=== PATIENT | male | born 1990 | race Caucasian/White ===

== ENCOUNTER 2016-11-09 13:13 | Inpatient (IN) | payer MEDICAID ==
[~2016-11-09] VITALS: Ht 170.2 cm; Wt 55.3 kg
[~2016-11-09 13:13] MED LIST: RIVA10TA PO
[2016-11-09] MEDS ORDERED: IV NORMAL SALINE 1000 ML BAG IV ONE ×2 (13:45→15:45)
[2016-11-09] MEDS ORDERED: ENOXAPARIN SODIUM 60 MG/0.6 ML DISP.SYRIN SQ ONE ×2 (13:45→14:10)
[2016-11-09] MEDS ORDERED: LORAZEPAM 2 MG/1 ML VIAL IV ONE (13:45)
[2016-11-09] MEDS ORDERED: IOHEXOL 350 100 ML INFUS..BTL ONE (13:57)
[2016-11-09] MEDS ORDERED: IV NORMAL SALINE 250 ML IV ONE (13:57)
[2016-11-09 14:01] LABS: BASOPHILS % (AUTO) 0.9 % (0.0-2.0); EOSINOPHILS # (AUTO) 0.1 K/uL (0.0-0.7); HEMATOCRIT 46.7 % (40-50); HEMOGLOBIN 15.6 G/DL (14.0-18.0); LYMPHOCYTES # (AUTO) 1.6 K/UL (0.8-4.8); MEAN CORPUSCULAR HEMOGLOBIN 28.6 UUG (27.0-31.0); MEAN CORPUSCULAR HGB CONC 33 g/dL (32.0-37.0); MEAN CORPUSCULAR VOLUME 85.8 FL (82.0-92.0); MONOCYTES # (AUTO) 0.3 K/UL (0.1-1.30); MONOCYTES % (AUTO) 5.8 % (0.0-11.0); NEUTROPHILS # (AUTO) 3.3 K/UL (1.8-8.9); NEUTROPHILS % (AUTO) 61.3 % (38.5-71.5); PLATELET COUNT (AUTO) 233 K/UL (150-450); RED BLOOD CELL COUNT(AUTO) 5.44 MIL/UL (4.7-6.1); WHITE BLOOD COUNT (AUTO) 5.3 K/UL (4.0-11.2)
--- NOTE | 2016-11-09 14:03 | NUR ---
PT IS ROOM 2B. DR AMOR EVALUATED THE PT.
[2016-11-09 14:05] LABS: CREATININE 0.9 mg/dL (0.6-1.3); POTASSIUM 3.7 mmol/L (3.5-5.1)
[2016-11-09] MEDS ORDERED: LORAZEPAM 2 MG/1 ML VIAL ONE (14:05)
[2016-11-09 14:18] LABS: BILIRUBIN,DIRECT 0.1 mg/dL (0.0-0.2); BILIRUBIN,TOTAL 0.6 mg/dL (0.2-1.0)
[2016-11-09] MEDS ORDERED: ASPIRIN 325 MG TABLET PO ONE (18:00)
[2016-11-09] MEDS ORDERED: ASPIRIN 325 MG TABLET ONE (18:04)
[2016-11-09 18:32] LABS: *AMPHETAMINE, URINE NEGATIVE (NEGATIVE); *BARBITURATE, URINE NEGATIVE (NEGATIVE); *CANNABINOID, URINE NEGATIVE (NEGATIVE); *COCCAINE, URINE NEGATIVE (NEGATIVE); *OPIATE, URINE NEGATIVE (NEGATIVE); *PHENCYCLIDINE SCREEN,URINE NEGATIVE (NEGATIVE)
--- NOTE | 2016-11-09 19:20 | NUR ---
Received report from MAXIME Levy. Assumed care of pt at this time.
--- NOTE | 2016-11-09 19:56 | NUR ---
Report given to MAXIME Morna. Preparing to transfer pt to the floor.
[2016-11-09 20:40] VITALS: BP 120/86
[2016-11-09] MEDS ORDERED: ACETAMINOPHEN ES 500 MG TABLET PO PRN (22:45)
[2016-11-09] MEDS ORDERED: ONDANSETRON 4 MG/2 ML VIAL IV PRN (22:45)
[2016-11-09] MEDS ORDERED: ZOLPIDEM 5 MG TABLET PO PRN (22:45)
[2016-11-09] MEDS ORDERED: MORPHINE SULFATE 2 MG/1 ML DISP.SYRIN IV PRN (22:45)
[2016-11-09] MEDS: IV NS 1000 ML 1,000 ML IV PRN (23:09)
[2016-11-10] VITALS: BP 116/74
[2016-11-10 04:00] VITALS: BP 112/74
--- NOTE | 2016-11-10 04:00 | NUR ---
PT ADMITTED DUE TO CHEST PAIN ,PT ALERT,ORIENTED,AMBULATORY. PER PT, LAST YEAR HE HAD SAME SYMPTOM THAT THEY FOUND PULMONARY EMBOLI WHICH NOW CLEARED AFTER 6 MONTHS OF XARELTO. PT TROPONIN HAVE BEEN NEGATIVE, CT CHEST IS NEGATIVE OF P.E. SERIES OF TROPONIN TAKEN AND REMAINS WITHIN NORMAL. DENIES ANY EPISODE OF CHEST PAIN WHEN PT ARRIVES TO FLOOR AND OVERNIGHT.SINUS TACHY @ 100'S WITH ACTIVITY AND WHEN ASLEEP HR WENT TO 56'S.ASYMPTOMATIC.VSS,AFEBRILE . CONTINUE TO MONITOR ALL NEEDS ATTENDED.
[2016-11-10 06:44] LABS: BASOPHILS % (AUTO) 0.6 % (0.0-2.0); EOSINOPHILS # (AUTO) 0.1 K/uL (0.0-0.7); EOSINOPHILS % (AUTO) 2.7 % (0.0-7.0); LYMPHOCYTES # (AUTO) 2.2 K/UL (0.8-4.8); LYMPHOCYTES % (AUTO) 40.8 % (20.5-51.5); MEAN CORPUSCULAR HEMOGLOBIN 29.2 UUG (27.0-31.0); MEAN CORPUSCULAR HGB CONC 33 g/dL (32.0-37.0); MEAN CORPUSCULAR VOLUME 87.4 FL (82.0-92.0); MONOCYTES # (AUTO) 0.5 K/UL (0.1-1.30); MONOCYTES % (AUTO) 8.5 % (0.0-11.0); NEUTROPHILS # (AUTO) 2.7 K/UL (1.8-8.9); NEUTROPHILS % (AUTO) 47.4 % (38.5-71.5); PLATELET COUNT (AUTO) 185 K/UL (150-450); WHITE BLOOD COUNT (AUTO) 5.5 K/UL (4.0-11.2)
[2016-11-10 06:59] LABS: CREATININE 0.8 mg/dL (0.6-1.3); POTASSIUM 3.6 mmol/L (3.5-5.1)
[2016-11-10 07:02] LABS: HEMATOCRIT 38.3 % (40-50); HEMOGLOBIN 12.8 G/DL (14.0-18.0); RED BLOOD CELL COUNT(AUTO) 4.39 MIL/UL (4.7-6.1)
[2016-11-10 07:39] LABS: THYROID STIMULATING HORMONE 1.021 mIU/mL (0.358-3.740)
--- NOTE | 2016-11-10 08:00 | NUR ---
Awake, alert, oriented x 4. IVF infusing. Denies pain and shortness of breath. Explain plan of care
[2016-11-10] MEDS ORDERED: ENOXAPARIN SODIUM 40 MG/0.4 ML DISP.SYRIN SQ SCH (09:00)
[2016-11-10] MEDS: IV NS 1000 ML 1,000 ML IV PRN (09:05)
[2016-11-10 12:00] VITALS: BP 108/76
--- NOTE | 2016-11-10 13:21 | NUR ---
With discharge order to home. Saline lock removed. Tele removed. DC instruction given, verbalized understanding. Went home per ambulatory per request, in fair condition, afebrile, not in distress.
== END 2016-11-10 13:15 | disposition home or self-care (01) | DRG 203 ==
LOC: ER 13:13 → TELE 20:02
PROVIDERS: ADMIT Psychiatry & Neurology Psychiatry; ATTEND Psychiatry & Neurology Psychiatry
DX: R07.89 Other chest pain (principal); F41.9 Anxiety disorder, unspecified; K21.9 Gastro-esophageal reflux disease without esophagitis; Z86.711 Personal history of pulmonary embolism; Z82.3 Family history of stroke
CPT/HCPCS: 36415; 70030-TC; 71010; 71275; 80307; 84443; 85025; 85730; 86850; 86900; 86901; 93005; 93307; A4663; J1650; J2060; J7030; J7050; Q9967

== ENCOUNTER 2016-12-14 04:11 | Emergency (ER) | payer MEDICAID ==
[~2016-12-14] VITALS: Ht 170.2 cm; Wt 55.3 kg
[2016-12-14 04:58] LABS: BASOPHILS % (AUTO) 0.7 % (0.0-2.0); EOSINOPHILS # (AUTO) 0.2 K/uL (0.0-0.7); EOSINOPHILS % (AUTO) 3.8 % (0.0-7.0); HEMATOCRIT 38.5 % (40-50); HEMOGLOBIN 13.4 G/DL (14.0-18.0); LYMPHOCYTES # (AUTO) 2.7 K/UL (0.8-4.8); MEAN CORPUSCULAR HEMOGLOBIN 29.5 UUG (27.0-31.0); MEAN CORPUSCULAR HGB CONC 35 g/dL (32.0-37.0); MEAN CORPUSCULAR VOLUME 84.6 FL (82.0-92.0); MONOCYTES # (AUTO) 0.4 K/UL (0.1-1.30); NEUTROPHILS # (AUTO) 1.6 K/UL (1.8-8.9); NEUTROPHILS % (AUTO) 33.5 % (38.5-71.5); PLATELET COUNT (AUTO) 217 K/UL (150-450); RED BLOOD CELL COUNT(AUTO) 4.54 MIL/UL (4.7-6.1); WHITE BLOOD COUNT (AUTO) 4.9 K/UL (4.0-11.2)
[2016-12-14 05:06] LABS: POTASSIUM 4.2 mmol/L (3.5-5.1)
[2016-12-14] MEDS: IV NORMAL SALINE 1000 ML BAG IV ONE (05:22)
--- NOTE | 2016-12-14 06:02 | NUR ---
Per MD, patient to be discharged after IVF completed. Written and verbal after care instructions given. Patient verbalizes understanding of instructions. To be discharged home.
[2016-12-14 06:04] VITALS: BP 128/83
[2016-12-14 06:13] LABS: *AMPHETAMINE, URINE NEGATIVE (NEGATIVE); *BARBITURATE, URINE NEGATIVE (NEGATIVE); *CANNABINOID, URINE NEGATIVE (NEGATIVE); *COCCAINE, URINE NEGATIVE (NEGATIVE); *OPIATE, URINE NEGATIVE (NEGATIVE); *PHENCYCLIDINE SCREEN,URINE NEGATIVE (NEGATIVE)
--- NOTE | 2016-12-14 06:13 | NUR ---
Patient discharged to home in stable conditon. Written and verbal after care instructions given. Patient verbalizes understanding of instructions.
== END 2016-12-14 06:15 | disposition home or self-care (01) ==
LOC: ER 04:14
DX: R00.2 Palpitations (principal); K21.9 Gastro-esophageal reflux disease without esophagitis
CPT/HCPCS: 36415; 71010; 80048; 80307; 84484; 85025; 85379; 85730; 93005; 96360; 99285; A4663; J7030; 70030-TC

== ENCOUNTER 2018-08-09 16:19 | Emergency (ER) | payer MEDICAID ==
[~2018-08-09] VITALS: Ht 170.2 cm; Wt 68.5 kg
--- NOTE | 2018-08-09 16:35 | NUR ---
PATIENT WAS SEEN BY MD. HE IS A/A/O X3 IN NO DISTRESS.
[2018-08-09 16:44] LABS: BASOPHILS % (AUTO) 0.4 % (0.0-2.0); EOSINOPHILS # (AUTO) 0.1 K/uL (0.0-0.7); EOSINOPHILS % (AUTO) 1.1 % (0.0-7.0); HEMATOCRIT 41.7 % (36.7-47.1); HEMOGLOBIN 14.3 g/dL (12.5-16.3); LYMPHOCYTES # (AUTO) 1.6 K/uL (20.0-40.0); MEAN CORPUSCULAR HEMOGLOBIN 30.1 uug (23.8-33.4); MEAN CORPUSCULAR HGB CONC 34 g/dL (32.5-36.3); MEAN CORPUSCULAR VOLUME 87.6 fL (73.0-96.2); MONOCYTES # (AUTO) 0.4 K/uL (2.0-10.0); MONOCYTES % (AUTO) 7.3 % (0.0-11.0); NEUTROPHILS # (AUTO) 3.5 K/uL (1.8-8.9); NEUTROPHILS % (AUTO) 62.2 % (38.5-71.5); PLATELET COUNT (AUTO) 246 K/uL (152-348); RED BLOOD CELL COUNT(AUTO) 4.76 MIL/uL (4.06-5.63); WHITE BLOOD COUNT (AUTO) 5.6 K/uL (3.6-10.2)
[2018-08-09 16:52] LABS: CREATININE 0.8 mg/dL (0.6-1.3)
--- NOTE | 2018-08-09 17:20 | NUR ---
DR ARVIZU WAS AT BEDSIDE SPEAKING TO PATIENT ABOUT TEST RESULTS AND PLAN. DC AND FOLLOW UP INSTRUCTIONS GIVEN AND EXPLAIND TO PATIENT WHO STATES SHE UNDERSTANDS ALL INSTRUCTIONS.
== END 2018-08-09 17:23 | disposition home or self-care (01) ==
LOC: ER 16:21
DX: M79.604 Pain in right leg (principal); M79.605 Pain in left leg; K21.9 Gastro-esophageal reflux disease without esophagitis
CPT/HCPCS: 36415; 85025; 85610; 85730; A4663

== ENCOUNTER 2018-12-02 16:43 | Emergency (ER) | payer MEDICAID ==
[~2018-12-02] VITALS: Ht 170.2 cm; Wt 61.2 kg
[2018-12-02 17:11] LABS: BASOPHILS % (AUTO) 0.6 % (0.0-2.0); EOSINOPHILS # (AUTO) 0.1 K/uL (0.0-0.7); EOSINOPHILS % (AUTO) 1.8 % (0.0-7.0); HEMATOCRIT 37.8 % (36.7-47.1); HEMOGLOBIN 13.1 g/dL (12.5-16.3); LYMPHOCYTES # (AUTO) 2.1 K/uL (20.0-40.0); LYMPHOCYTES % (AUTO) 33.8 % (20.5-51.5); MEAN CORPUSCULAR HEMOGLOBIN 30.4 uug (23.8-33.4); MEAN CORPUSCULAR HGB CONC 35 g/dL (32.5-36.3); MEAN CORPUSCULAR VOLUME 87.5 fL (73.0-96.2); MONOCYTES # (AUTO) 0.4 K/uL (2.0-10.0); MONOCYTES % (AUTO) 7.2 % (0.0-11.0); NEUTROPHILS # (AUTO) 3.5 K/uL (1.8-8.9); NEUTROPHILS % (AUTO) 56.6 % (38.5-71.5); PLATELET COUNT (AUTO) 241 K/uL (152-348); RED BLOOD CELL COUNT(AUTO) 4.32 MIL/uL (4.06-5.63); WHITE BLOOD COUNT (AUTO) 6.2 K/uL (3.6-10.2)
[2018-12-02 17:19] LABS: CREATININE 0.9 mg/dL (0.6-1.3)
--- NOTE | 2018-12-02 17:30 | NUR ---
IV started on left hand
[2018-12-02 17:32] LABS: BILIRUBIN,DIRECT 0.1 mg/dL (0.0-0.2); BILIRUBIN,TOTAL 0.4 mg/dL (0.2-1.0); TOTAL PROTEIN, SERUM 7.1 g/dL (6.4-8.2)
--- NOTE | 2018-12-02 18:15 | NUR ---
Patient discharged to home in stable conditon. Written and verbal after care instructions given. Patient verbalizes understanding of instructions. Steady gait NO SOB. No CP.
[2018-12-02 18:17] VITALS: BP 125/87
== END 2018-12-02 18:18 | disposition home or self-care (01) ==
LOC: ER 16:43
DX: R07.89 Other chest pain (principal); K21.9 Gastro-esophageal reflux disease without esophagitis; F41.9 Anxiety disorder, unspecified
CPT/HCPCS: 36415; 70030-TC; 71045; 85025; 85730; 93005; A4663